=== PATIENT | female | born 1960 | race Caucasian/White ===

== ENCOUNTER → 2022-06-25 | Outpatient (CLI) | payer BC ==
--- NOTE | 2022-06-25 22:28 | MR ---
EXAMINATION TYPE: MR cspine/lspine wo con DATE OF EXAM: 06/25/2022 COMPARISON: None HISTORY: Neck and low back pain on right side TECHNIQUE: Multiplanar, multisequence imaging of the cervical and lumbar spine is performed without I V contrast. FINDINGS: Cervical spine MRI: Anterior cervical fusion and discectomy changes present at C5-6, susceptibility a rtifact is present due to patient's metallic hardware. There is a spinal curvature noted centered phuc r the cervical thoracic junction. Cervical vertebral bodies show preserved height. There is multileve l spondylosis, loss of disc signal consistent with disc desiccation and degenerative disc disease. Ce rvical cord signal is thought to be maintained. No evident spinal stenosis. C2-3: Uncovertebral joint hypertrophy, facet arthropathy causes some left-sided foraminal encroachmen t. No evident disc herniation C3-4: No disc herniation. No significant foraminal encroachment C4-5: No significant foraminal encroachment or evident disc herniation C5-6: No evident disc herniation. Uncovertebral joint hypertrophy causes some right greater than left foraminal encroachment C5-6: No evident disc herniation or foraminal encroachment C7-T1: Unremarkable Lumbar spine MRI: Sagittal images of the lumbar spine show anterolisthesis grade 1 L4-5. Loss of disc height signal is present at intervertebral levels. Multilevel spondylosis is present with endplate discogenic marrow s ignal change. No significant spinal stenosis. The conus is at L1-2 and shows an unremarkable appearan ce. Lumbar vertebral bodies show preserved height. Spinal curvature is noted. L5-S1: Facet arthropathy changes are noted. Posterior disc bulge causes only minimal anterior mass ef fect on the thecal sac. Circumferential extension endplate disc complex causes left-sided foraminal e ncroachment. L4-5: Hypertrophic changes of the facets causes posterior lateral mass effect on the thecal sac. List hesis contributes to cause foraminal encroachment greater on the right than on the left, there is pos terior broad-based disc bulge somewhat eccentric towards the right. Some mild anterior mass effect on the thecal sac noted. L3-4: Posterior broad-based disc bulge causes mild anterior mass effect on the thecal sac. Facet arth ropathy with hypertrophy ligamentum flavum causes posterior lateral mass effect on the thecal sac. Ci rcumferential extension endplate disc complex results in some right-sided foraminal encroachment. Min imal anterolisthesis grade 1 L3-4. L2-3: Posterior disc bulge causes mild anterior mass effect on the thecal sac. No significant foramin al encroachment. Hypertrophic changes of the facets causes some posterior lateral mass effect thecal sac. L1-2: Posterior broad-based disc bulge causes mild anterior mass effect on the thecal sac. No signifi cant foraminal encroachment. Facet arthropathy with hypertrophy ligamentum flavum causes some posteri or lateral mass effect on the thecal sac. T12-L1: Left posterior paracentral disc bulge causes mild anterior mass effect on the thecal sac. No significant foraminal encroachment. IMPRESSION: Degenerative disc disease, facet arthropathy, spondylolisthesis and spinal curvature.
== END | disposition home or self-care (01) ==
LOC: RADMRIMAIN 20:45
PROVIDERS: ATTEND Physical Medicine & Rehabilitation
DX: M43.12 Spondylolisthesis, cervical region (principal); M43.16 Spondylolisthesis, lumbar region; M51.36 Other intervertebral disc degeneration, lumbar region
CPT/HCPCS: 72141; 72148